=== PATIENT | male | born 1960 | race Hispanic/Latino ===

== ENCOUNTER 2024-08-05 03:22 | Emergency (ER) | payer SELFPAY ==
[~2024-08-05] VITALS: Ht 167.6 cm; Wt 81.6 kg
[2024-08-05 03:29] VITALS: PULSE 82; RESP 18; TEMP 98.5; O2SAT 100
[2024-08-05] MEDS: ONDANSETRON HCL INJ 2MG/ML 2ML 2 MG/ML VIAL IV STA (03:43)
[2024-08-05] MEDS: MULTIVITAMINS- 12 INJECTION 10 ML, FOLIC ACID MDV 1 MG, THIAMINE HCL INJ 100 MG in SODI... IV ONE (03:47)
[2024-08-05 03:53] LABS: BASOPHILS # (AUTO) 0.1 (0.0-0.1); EOSINOPHILS # (AUTO) 0.1 (0.0-0.4); EOSINOPHILS % 1.4 % (0.0-6.0); HEMATOCRIT 28.5 % (38.2-49.6); LYMPHOCYTES # (AUTO) 3.4 (1.0-3.2); LYMPHOCYTES % 53.3 % (18.0-39.1); MEAN CORPUSCULAR HEMOGLOBIN 19.2 pg (28-32); MEAN CORPUSCULAR HGB CONC 28.1 g/dL (31-35); MEAN CORPUSCULAR VOLUME 68.5 fL (81-99); MONOCYTES # (AUTO) 0.3 (0.2-0.8); MONOCYTES % 4.9 % (4.4-11.3); NEUTROPHILS # (AUTO) 2.5 (2.1-6.9); NEUTROPHILS % 39.1 % (38.7-80.0); PLATELET COUNT 288 x10e3/uL (140-360); RED BLOOD COUNT 4.16 x10e6/uL (4.3-5.7); RED CELL DISTRIBUTION WIDTH 19.1 % (11.7-14.4); WHITE BLOOD COUNT 6.28 x10e3/uL (4.8-10.8)
[2024-08-05 04:09] LABS: ETHANOL 201.5 mg/dL (0.0-10.0)
[2024-08-05] MEDS ORDERED: ONDANSETRON ODT4 MG SL (04:14)
[2024-08-05] MEDS ORDERED: PANTOPRAZOLE SO40 MG PO (04:14)
[2024-08-05 04:31] LABS: ANION GAP 10.9 mmol/L (8-16); POTASSIUM 3.9 mmol/L (3.0-5.1)
[2024-08-05 04:33] LABS: CALCIUM 8.1 mg/dL (8.0-10.3)
[2024-08-05 04:34] LABS: ALBUMIN 3.5 g/dL (3.3-5.5); ALBUMIN/GLOBULIN RATIO 0.9 (0.8-2.0); BILIRUBIN,TOTAL 0.5 mg/dL (0.2-1.6); TOTAL PROTEIN 7.5 g/dL (6.4-8.1)
[2024-08-05 07:42] LABS: BASOPHILS % (MANUAL) 1 % (0-1.5); EOSINOPHILS % (MANUAL) 1 % (0-7); LYMPHOCYTES % (MANUAL) 50 % (19-48); MONOCYTES % (MANUAL) 9 % (3.4-9.0); NEUTROPHILS % (MANUAL) 39 % (40-74)
[2024-08-05 07:45] LABS: ANISOCYTOSIS MODERATE; HYPOCHROMASIA MODERATE; OVALOCYTES FEW; PLATELET ESTIMATE ADEQUATE; PLATELET MORPHOLOGY COMMENT NORMAL; RBC MORPHOLOGY COMMENT ABNORMAL; TARGET CELLS FEW
== END 2024-08-05 05:42 | disposition home or self-care (01) ==
LOC: ER 03:28
DX: R11.2 Nausea with vomiting, unspecified (principal); F10.129 Alcohol abuse with intoxication, unspecified; K29.20 Alcoholic gastritis without bleeding; D64.9 Anemia, unspecified; R10.13 Epigastric pain
CPT/HCPCS: 36415; 74019; 80053; 80320; 83690; 85025; 99283; J2405; J2470; J3411; J7030